=== PATIENT | male | born 1975 | race African-American/Black ===

== ENCOUNTER 2016-11-08 20:13 | Emergency (ER) | payer SELFPAY ==
[~2016-11-08] VITALS: Ht 177.8 cm; Wt 120.5 kg
[2016-11-08 20:47] LABS: BASO % 0.3 % (0.0-2.0); EOS # 0.2 (0.0-0.7); EOS % 2.3 % (0-4.0); GRAN # 4.4 (1.4-6.5); GRAN % 48.1 % (42.2-75.2); HEMATOCRIT 42.4 % (42.0-52.0); HEMOGLOBIN 14.1 g/dl (13.5-18.0); LYMPH % 43.1 % (20.0-51.0); MEAN CELL VOLUME 88 fl (80.0-100.0); MEAN CORPUSCULAR HEMOGLOBIN 29 pg (27.0-31.0); MEAN CORPUSCULAR HGB CONC 33 g/dl (33.0-37.0); MEAN PLATELET VOLUME 11.4 fl (7.4-10.4); MONO # 0.5 (0.1-0.6); MONO % 5.2 % (1.7-9.3); PLATELET COUNT 176 K/mm3 (130-400); PROTHROMBIN TIME 11.2 SECONDS (9.7-12.8); RED BLOOD COUNT 4.81 M/mm3 (4.20-5.60); REDCELL DISTRIBUTION WIDTH-CV 13.6 % (11.5-14.5); WHITE BLOOD COUNT 9.2 K/mm3 (4.8-10.8)
[2016-11-08 20:52] LABS: ADJUSTED CALCIUM 8.3 mg/dL (8.4-10.2); ALBUMIN 4.2 gm/dL (3.5-5.0); BILIRUBIN,TOTAL 0.5 mg/dL (0.0-1.0); CALCIUM 8.5 mg/dL (8.4-10.2); CREATININE, serum 1.29 mg/dL (0.66-1.25); POTASSIUM 3.1 mmol/L (3.4-5.0); TOTAL PROTEIN 7.4 gm/dL (6.4-8.2)
[2016-11-08 23:24] VITALS: TEMP 98.4
[2016-11-09 00:45] VITALS: BP 120/72; PULSE 85
[2016-11-09] MEDS ORDERED: DEPAKOTE ER 50500 MG PO (06:08)
[2016-11-09] MEDS ORDERED: KEPPRA 500MG500 MG PO (06:08)
== END 2016-11-09 00:45 | disposition short-term general hospital (02) ==
LOC: COL.ER 20:13
PROVIDERS: Emergency Medicine
DX: S27.1XXA Traumatic hemothorax, initial encounter (principal); S22.31XA Fracture of one rib, right side, initial encounter for closed fracture; S22.32XA Fracture of one rib, left side, initial encounter for closed fracture; S32.511A Fracture of superior rim of right pubis, initial encounter for closed fracture; S42.191A Fracture of other part of scapula, right shoulder, initial encounter for closed fracture; S80.212A Abrasion, left knee, initial encounter; S80.211A Abrasion, right knee, initial encounter; S60.512A Abrasion of left hand, initial encounter; S70.311A Abrasion, right thigh, initial encounter; G40.909 Epilepsy, unspecified, not intractable, without status epilepticus; Z23 Encounter for immunization; V23.4XXA Motorcycle driver injured in collision with car, pick-up truck or van in traffic accident, initial encounter; Y93.I9 Activity, other involving external motion
CPT/HCPCS: J2405; J3010; J7030; P9016; Q9967

== ENCOUNTER → 2016-11-09 | Outpatient (REF) ==
[~2016-11-09] MED LIST: DEPAKOTE ER 50500 MG PO; KEPPRA 500MG500 MG PO
[2016-11-09 04:03] LABS: HIV 1/2 Antibodies Non-Reactive; HIV-1p24 Antigen Non-Reactive
== END ==
LOC: COL.EMP 03:25 → COL.ER 03:25
PROVIDERS: Emergency Medicine
DX: Z02.1 Encounter for pre-employment examination (principal)

== ENCOUNTER 2016-11-27 10:44 | Inpatient (IN) | payer BC ==
[~2016-11-27] VITALS: Ht 177.8 cm; Wt 110.6 kg
[~2016-11-27 10:44] MED LIST changes: -KEPPRA 500MG500 MG PO; +KEPPRA750 MG PO
[2016-11-27 16:44] VITALS: BP 115/89; PULSE 109; TEMP 98
[2016-11-27] MEDS ORDERED: TYLENOL 325MG325 MG PO (17:09)
[2016-11-27] MEDS ORDERED: QUALITY CHOI500 U/GM TOP (17:10)
[2016-11-27] MEDS ORDERED: LOVENOX 4040 MG/0.4 SQ (17:11)
[2016-11-27] MEDS ORDERED: MELATONIN5 M1 PO (17:14)
[2016-11-27] MEDS ORDERED: ROXICODONE 55 MG/TAB PO (17:15)
[2016-11-27] MEDS ORDERED: MIRALAX PA17 GM/Dose PO (17:16)
[2016-11-27] MEDS ORDERED: SENOKOT S 50 MG1 TAB PO (17:17)
[2016-11-27] MEDS ORDERED: DESYREL 100MG100 MG PO (17:19)
[2016-11-27 18:00] VITALS: BP 115/89; PULSE 109; TEMP 98
[2016-11-28 04:20] VITALS: BP 119/67; PULSE 92; TEMP 98.4
[2016-11-28 16:36] VITALS: BP 107/67; PULSE 102; TEMP 98.2
[2016-11-29 05:14] VITALS: BP 124/66; PULSE 82; TEMP 98.2
[2016-11-29 16:57] VITALS: BP 125/71; PULSE 92; TEMP 98.9
[2016-11-30 06:00] VITALS: BP 112/92; PULSE 86; TEMP 98.8
[2016-11-30 17:32] VITALS: BP 130/76; PULSE 65; TEMP 98
[2016-12-01 05:32] VITALS: BP 121/72; PULSE 67; TEMP 99
[2016-12-01 06:56] LABS: BASO % 0.6 % (0.0-2.0); EOS # 0.1 (0.0-0.7); EOS % 1.3 % (0-4.0); GRAN % 37.4 % (42.2-75.2); LYMPH # 2.5 (1.2-3.4); LYMPH % 46.1 % (20.0-51.0); MEAN CELL VOLUME 90 fl (80.0-100.0); MEAN CORPUSCULAR HGB CONC 33 g/dl (33.0-37.0); MEAN PLATELET VOLUME 9.9 fl (7.4-10.4); MONO # 0.8 (0.1-0.6); MONO % 14.4 % (1.7-9.3); PLATELET COUNT 675 K/mm3 (130-400); REDCELL DISTRIBUTION WIDTH-CV 15.6 % (11.5-14.5); WHITE BLOOD COUNT 5.4 K/mm3 (4.8-10.8)
[2016-12-01 06:57] LABS: HEMATOCRIT 29.8 % (42.0-52.0); HEMOGLOBIN 9.7 g/dl (13.5-18.0); MEAN CORPUSCULAR HEMOGLOBIN 29 pg (27.0-31.0)
[2016-12-01 07:12] LABS: CALCIUM 8.4 mg/dL (8.4-10.2); CREATININE, serum 0.96 mg/dL (0.66-1.25); MAGNESIUM 2.3 mg/dL (1.6-2.3); POTASSIUM 4.6 mmol/L (3.4-5.0)
[2016-12-01 16:09] VITALS: BP 122/71; PULSE 99; TEMP 98.8
[2016-12-02 05:16] VITALS: BP 139/79; PULSE 89; TEMP 98.6
[2016-12-02 16:06] VITALS: BP 112/80; PULSE 89; TEMP 97.9
[2016-12-03 06:41] VITALS: BP 119/73; PULSE 85; TEMP 98.5
[2016-12-03] MEDS ORDERED: LOVENOX 4040 MG/0.4 SQ (15:52)
[2016-12-03] MEDS ORDERED: FERROUS SU325 MG/TAB PO (15:52)
[2016-12-03] MEDS ORDERED: KEPPRA750 MG PO (15:53)
[2016-12-03] MEDS ORDERED: DEPAKOTE ER 50500 MG PO (15:53)
== END 2016-12-03 18:06 | disposition home or self-care (01) | DRG 950 ==
PROVIDERS: Internal Medicine
DX: S27.2XXD Traumatic hemopneumothorax, subsequent encounter (principal); S32.9XXD Fracture of unspecified parts of lumbosacral spine and pelvis, subsequent encounter for fracture with routine healing; S22.41XD Multiple fractures of ribs, right side, subsequent encounter for fracture with routine healing; S42.191D Fracture of other part of scapula, right shoulder, subsequent encounter for fracture with routine healing; G40.909 Epilepsy, unspecified, not intractable, without status epilepticus; V29.40XD Motorcycle driver injured in collision with unspecified motor vehicles in traffic accident, subsequent encounter; D64.9 Anemia, unspecified
CPT/HCPCS: 99222-AI; 99232-AI; 99239; J1650

== ENCOUNTER 2017-01-08 14:45 | Outpatient (RCR) | payer BC ==
[~2017-01-08 14:45] MED LIST changes: +DESYREL 100MG100 MG PO; +FERROUS SU325 MG/TAB PO; +LOVENOX 4040 MG/0.4 SQ; +MELATONIN5 M1 PO; +MIRALAX PA17 GM/Dose PO; +QUALITY CHOI500 U/GM TOP; +ROXICODONE 55 MG/TAB PO; +SENOKOT S 50 MG1 TAB PO; +TYLENOL 325MG325 MG PO
== END 2017-01-26 09:15 | disposition still patient (30) ==
LOC: MKS.ESL.OT 14:45
DX: S22.43XD Multiple fractures of ribs, bilateral, subsequent encounter for fracture with routine healing (principal); S32.9XXD Fracture of unspecified parts of lumbosacral spine and pelvis, subsequent encounter for fracture with routine healing; S42.101D Fracture of unspecified part of scapula, right shoulder, subsequent encounter for fracture with routine healing; V29.9XXD Motorcycle rider (driver) (passenger) injured in unspecified traffic accident, subsequent encounter; R56.9 Unspecified convulsions; Z79.01 Long term (current) use of anticoagulants

== ENCOUNTER 2017-01-28 13:57 | Outpatient (RCR) | payer BC | END 2017-01-30 10:26 | LOC: MKS.ESL.PT 13:57 | DX: Z01.818 Encounter for other preprocedural examination (principal) ==

== ENCOUNTER 2017-04-24 13:15 | Outpatient (RCR) | payer BC | END 2017-05-14 | disposition home or self-care (01) | LOC: MKS.ESL.PT | DX: Z47.89 Encounter for other orthopedic aftercare (principal) ==

== ENCOUNTER 2017-06-01 09:16 | Outpatient (RCR) | payer BC ==
[2017-06-08] MEDS ORDERED: DEPAKOTE500 MG PO (06:38)
[2017-06-08] MEDS ORDERED: QBRELIS1 MG/1 ML PO (06:40)
[2017-06-08] MEDS ORDERED: INDERAL 10MG10 MG PO (06:41)
[2017-06-08] MEDS ORDERED: AMBIEN 10MG10 MG PO (06:42)
[2017-06-08] MEDS ORDERED: ADDERALL XR 10M10 MG PO (06:43)
[2017-06-08] MEDS ORDERED: TYLENOL SINUS1 EACH PO (06:47)
== END 2017-06-11 09:17 | disposition home or self-care (01) ==
LOC: MKS.ESL.PT 09:16
DX: Z01.818 Encounter for other preprocedural examination (principal)

== ENCOUNTER 2017-06-08 05:35 | Day surgery (SDC) | payer BC ==
[~2017-06-08] VITALS: Ht 177.8 cm; Wt 110.9 kg
[2017-06-08] VITALS (8 sets, daily range): BP systolic 105–127; BP diastolic 47–90; PULSE 57–68; TEMP 97.4–97.7
[2017-06-08] MEDS ORDERED: DEPAKOTE500 MG PO (06:38)
[2017-06-08] MEDS ORDERED: QBRELIS1 MG/1 ML PO (06:40)
[2017-06-08] MEDS ORDERED: INDERAL 10MG10 MG PO (06:41)
[2017-06-08] MEDS ORDERED: AMBIEN 10MG10 MG PO (06:42)
[2017-06-08] MEDS ORDERED: ADDERALL XR 10M10 MG PO (06:43)
[2017-06-08] MEDS ORDERED: TYLENOL SINUS1 EACH PO (06:47)
== END 2017-06-08 12:45 | disposition home or self-care (01) ==
LOC: SDCO 05:35
DX: M75.101 Unspecified rotator cuff tear or rupture of right shoulder, not specified as traumatic (principal); G40.909 Epilepsy, unspecified, not intractable, without status epilepticus; Z88.1 Allergy status to other antibiotic agents; Z88.0 Allergy status to penicillin; Z87.891 Personal history of nicotine dependence
CPT/HCPCS: C1713; J0171; J1885; J2250; J2405; J2704; J2795; J3010; J7120; Q4125

== ENCOUNTER 2017-07-24 12:30 | Outpatient (RCR) | payer BC ==
[~2017-07-24 12:30] MED LIST changes: +ADDERALL XR 10M10 MG PO; +AMBIEN 10MG10 MG PO; +DEPAKOTE500 MG PO; +INDERAL 10MG10 MG PO; +QBRELIS1 MG/1 ML PO; +TYLENOL SINUS1 EACH PO
== END 2017-09-10 | disposition home or self-care (01) ==
LOC: MKS.ESL.PT
DX: Z47.89 Encounter for other orthopedic aftercare (principal)